=== PATIENT | female | born 1955 | race Caucasian/White ===

== ENCOUNTER 2022-05-09 14:39 | Inpatient (IN) | payer MEDICARE ==
[2022-05-09 16:19] VITALS: BMI 25.2
[2022-05-09] MEDS ORDERED: HYDROcodone/Acetaminophen 5/325 mg Tablet PO PRN (16:42)
[2022-05-09] MEDS ORDERED: Ondansetron PF 4 MG/2 ML Vial IVP PRN (16:49)
[2022-05-09] MEDS ORDERED: Morphine 2 MG/ML VIAL SLOW IVP PRN (16:49)
[2022-05-09 18:38] LABS: Troponin I 0.233 ng/mL (< 0.028)
[2022-05-09] MEDS: Carvedilol 3.125 MG TAB PO SCH (19:38)
[2022-05-09 20:44] LABS: Troponin I 0.236 ng/mL (< 0.028)
[2022-05-09] MEDS: Atorvastatin Calcium 40 MG TAB PO SCH (22:12)
[2022-05-10 04:50] LABS: #Eosinphils 0.1 10x3/uL (0.0-0.5); #Monocytes 0.5 10x3/uL (0.0-1.1); %Basophils 0.9 % (0.0-2.0); %Eosinophils 2.7 % (0.0-6.0); %Lymphocytes 40.1 % (18.0-47.0); %Monocytes 10.7 % (0.0-10.0); %Neutrophils 45.4 % (40.0-75.0); Hemoglobin 13.4 g/dL (12.0-15.5); Mean Corpuscular HGB CONC 33.6 g/dL (32.0-36.0); Mean Corpuscular Hemoglobin 30.7 pg (27.0-33.0); Mean Corpuscular Volume 91.5 fl (81.6-98.3); Mean Platelet Volume 8.8 fl (7.4-10.4); Platelet Count 289 10x3/uL (150-450); Red Blood Cell (RBC) Count 4.36 10x6/uL (3.90-5.03); White Blood Cell (WBC) Count 4.4 10x3/uL (3.5-10.5)
[2022-05-10 04:54] LABS: ALT (SGPT) 17 U/L (8-55); AST (SGOT) 20 U/L (5-34); Albumin 3.9 g/dL (3.4-4.8); Alkaline Phosphatase 61 U/L (40-110); Anion Gap 17 mmol/L (10-20); BUN (Urea Nitrogen) 16 mg/dL (9.8-20.1); Bilirubin, Total 0.4 mg/dL (0.2-1.2); Calc. Creatinine Clearance 90 mL/min (70-130); Calcium 9.3 mg/dL (7.8-10.44); Carbon Dioxide 24 mmol/L (23-31); Cardiac Risk 3.8 (Less than 4.5); Chloride 106 mmol/L (98-107); Cholesterol 201 mg/dl (< 200 Desired); Globulin 2.4 g/dL (2.4-3.5); Glucose 109 mg/dL (80-115); HDL Cholesterol 53 mg/dL (>60 Neg Risk); LDL Cholesterol, Calculated 121 mg/dL; Potassium 4.7 mmol/L (3.5-5.1); Protein, Total 6.3 g/dL (5.8-8.1); Sodium 142 mmol/L (136-145); Triglycerides 136 mg/dL (Less than 150)
[2022-05-10] MEDS: Enoxaparin Sodium 80 MG/0.8 ML SYRINGE SC SCH ×2 (09:25→20:52)
[2022-05-10] MEDS: Aspirin 81 mg Enteric Coated Tablet PO SCH (09:25)
[2022-05-10] MEDS ORDERED: Carvedilol 6.25 MG TAB PO SCH (09:30)
[2022-05-10] MEDS: Carvedilol 3.125 MG TAB PO SCH (09:36)
[2022-05-10] MEDS: Citalopram 20 MG TAB PO SCH (09:59)
[2022-05-10] MEDS: Ezetimibe 10 MG TAB PO SCH (09:59)
[2022-05-10] MEDS: Folic Acid 1 MG TAB PO SCH (10:00)
[2022-05-10 12:52] LABS: Hemoglobin A1c 5.6 % (4.0-6.0)
[2022-05-10 15:03] LABS: Troponin I 0.223 ng/mL (< 0.028)
[2022-05-10] MEDS ORDERED: Communication Order-Pharmacy FS SCH (15:15)
[2022-05-10] MEDS: Atorvastatin Calcium 40 MG TAB PO SCH (20:51)
[2022-05-10] MEDS: Calcium Carbonate 600 MG + Vit D TAB PO SCH (20:51)
[2022-05-10] MEDS: Carvedilol 6.25 MG TAB PO SCH (20:51)
[2022-05-11] MEDS: Sodium Chloride 0.9% 1,000 ML IV SCH ×2 (06:44→20:47)
[2022-05-11] MEDS: Citalopram 20 MG TAB PO SCH (09:02)
[2022-05-11] MEDS: Aspirin 81 mg Enteric Coated Tablet PO SCH (09:03)
[2022-05-11] MEDS: Folic Acid 1 MG TAB PO SCH (09:03)
[2022-05-11] MEDS: Ezetimibe 10 MG TAB PO SCH (09:03)
[2022-05-11] MEDS: Calcium Carbonate 600 MG + Vit D TAB PO SCH ×2 (09:04→21:10)
[2022-05-11] MEDS: Carvedilol 6.25 MG TAB PO SCH ×2 (09:04→21:11)
[2022-05-11] MEDS ORDERED: Iopamidol 300 61% 100 ML VIAL FS ONE (12:01)
[2022-05-11] MEDS ORDERED: Heparin 10,000 UNITS/ 10 ML VIAL ONE ×2 (12:48→14:21)
[2022-05-11] MEDS ORDERED: Nitroglycerin 50 MG/250 ML BOT 250 ML ONE (12:48)
[2022-05-11] MEDS ORDERED: Adenosine 6 MG/2 ML VIAL ONE (12:49)
[2022-05-11] MEDS ORDERED: Verapamil 5 MG/2 ML VIAL ONE (12:49)
[2022-05-11] MEDS ORDERED: Bivalirudin 250 MG VIAL ONE (12:50)
[2022-05-11] MEDS ORDERED: Fentanyl 100 MCG/2 ML VIAL ONE (12:51)
[2022-05-11] MEDS ORDERED: Midazolam HCl 2 mg/2 ml Vial ONE (12:51)
[2022-05-11] MEDS ORDERED: Lidocaine 1% MPF 2 ML VIAL ONE (12:51)
[2022-05-11] MEDS ORDERED: Lidocaine 1% 20 ML MDV ONE (12:52)
[2022-05-11] MEDS ORDERED: TICAGRELOR 90 MG TABLET ONE (14:10)
[2022-05-11] MEDS ORDERED: Nitroglycerin 0.4 MG TAB (25 Tab Bottle) SL PRN (14:31)
[2022-05-11] MEDS ORDERED: Acetaminophen/Codeine 30-300mg Tablet PO PRN ×2 (14:31)
[2022-05-11] MEDS ORDERED: Sodium Chloride 0.9% 200 ML IV PRN (14:31)
[2022-05-11] MEDS: Acetaminophen 325 MG TAB PO PRN ×2 (15:59→23:01)
[2022-05-11] MEDS: Atorvastatin Calcium 40 MG TAB PO SCH (21:11)
[2022-05-11] MEDS: TICAGRELOR 90 MG TABLET PO SCH (21:11)
[2022-05-12] MEDS: Sodium Chloride 0.9% 1,000 ML IV SCH (04:33)
[2022-05-12] MEDS: Ezetimibe 10 MG TAB PO SCH (09:51)
[2022-05-12] MEDS: Calcium Carbonate 600 MG + Vit D TAB PO SCH (09:51)
[2022-05-12] MEDS: Aspirin 81 mg Enteric Coated Tablet PO SCH (09:51)
[2022-05-12] MEDS: TICAGRELOR 90 MG TABLET PO SCH (09:51)
[2022-05-12] MEDS: Citalopram 20 MG TAB PO SCH (09:51)
[2022-05-12] MEDS: Carvedilol 6.25 MG TAB PO SCH (09:52)
[2022-05-12] MEDS: Folic Acid 1 MG TAB PO SCH (10:01)
[2022-05-12 11:29] VITALS: BP 132/67; TEMP 98.4
== END 2022-05-12 12:25 | disposition home or self-care (01) | DRG 247 ==
LOC: CSHTELE 16:10
PROVIDERS: ADMIT Family Medicine; ATTEND Family Medicine
PROC: 027135Z Dilation of Coronary Artery, Two Arteries with Two Drug-eluting Intraluminal Devices, Percutaneous Approach (ICD-10-PCS; principal; 2022-05-11)
PROC: 4A023N7 Measurement of Cardiac Sampling and Pressure, Left Heart, Percutaneous Approach (ICD-10-PCS; 2022-05-11)
PROC: B2111ZZ Fluoroscopy of Multiple Coronary Arteries using Low Osmolar Contrast (ICD-10-PCS; 2022-05-11)
PROC: B2151ZZ Fluoroscopy of Left Heart using Low Osmolar Contrast (ICD-10-PCS; 2022-05-11)
DX: I21.4 Non-ST elevation (NSTEMI) myocardial infarction (principal); I42.8 Other cardiomyopathies; I25.110 Atherosclerotic heart disease of native coronary artery with unstable angina pectoris; M06.9 Rheumatoid arthritis, unspecified; I10 Essential (primary) hypertension; M47.812 Spondylosis without myelopathy or radiculopathy, cervical region; F41.9 Anxiety disorder, unspecified; F32.A Depression, unspecified; E78.2 Mixed hyperlipidemia; E78.00 Pure hypercholesterolemia, unspecified; J45.909 Unspecified asthma, uncomplicated; Z20.822 Contact with and (suspected) exposure to COVID-19; Z88.0 Allergy status to penicillin; Z88.2 Allergy status to sulfonamides; Z88.8 Allergy status to other drugs, medicaments and biological substances; Z79.82 Long term (current) use of aspirin; Z79.02 Long term (current) use of antithrombotics/antiplatelets; Z90.710 Acquired absence of both cervix and uterus; Z98.890 Other specified postprocedural states; Z72.89 Other problems related to lifestyle; Z79.899 Other long term (current) drug therapy; Z82.49 Family history of ischemic heart disease and other diseases of the circulatory system; Z80.0 Family history of malignant neoplasm of digestive organs; Z82.0 Family history of epilepsy and other diseases of the nervous system
CPT/HCPCS: 36415; 80053; 80061; 83036; 84443; 84484; 85025; 85347; 92928; 92929; 93005; 93010; 93306; 93458; 99152; 99153; C1769; C1874; C1887; C1894; C9600; C9601; J0153; J0583; J1644; J1650; J2250; J3010; J7050; Q9967; U0003; U0005